=== PATIENT | male | born 1995 | race Caucasian/White ===

== ENCOUNTER 2017-05-05 09:43 | Emergency (ER) | payer OTHER ==
[~2017-05-05] VITALS: Ht 175.3 cm; Wt 90.7 kg
[2017-05-05 11:04] LABS: BASO # 0.1 K/mm3 (0.0-0.2); EOS # 0.2 K/mm3 (0.0-0.50); EOS % 3.7 % (0.0-3.0); LARGE UNSTAINED CELL # 0.2 K/mm3 (0.0-0.4); LARGE UNSTAINED CELL % 3.1 % (0.0-4.0); LYMPH # 1.8 K/mm3 (1.5-6.5); LYMPH % 25.8 % (24.0-44.0); MEAN CORPUSCULAR HEMOGLOBIN 30.2 pg (27.0-33.0); MEAN CORPUSCULAR HGB CONC 33.1 g/dl (32.0-36.5); MONO # 0.3 K/mm3 (0.0-0.8); MONO % 5.6 % (0.0-5.0); NEUTROPHILS # 3.7 K/mm3 (1.8-7.7); NEUTROPHILS % 60.8 % (36.0-66.0); PLATELET COUNT, AUTOMATED 299 k/mm3 (150-450)
[2017-05-05 11:06] LABS: INR 1.01
--- NOTE | 2017-05-05 11:12 | REP ---
CT Head without contrast HISTORY: Right facial weakness COMPARISON: None There is no intraparenchymal hemorrhage, acute infarct, mass or midline shift. The ventricular system is normal in appearance. There is no extra cerebral collection. There is no fracture. The visualized sinuses are clear. IMPRESSION: There is no intracranial lesion. Signed by Martin Griffin MD 05/05/2017 11:03 A
[2017-05-05 11:25] LABS: ANION GAP 5 MEQ/L (8-16); BLOOD UREA NITROGEN 19 MG/DL (7-18); CALCIUM LEVEL 8.7 MG/DL (8.5-10.1); CARBON DIOXIDE LEVEL 31 MEQ/L (21-32); CHLORIDE LEVEL 104 MEQ/L (98-107); CREATININE FOR GFR 0.98 MG/DL (0.70-1.30); ERYTHROCYTE SEDIMENTATION RATE 31 mm/hr (0-15); GLOMERULAR FILTRATION RATE > 60.0 (>60); GLUCOSE, FASTING 95 MG/DL (70-105); POTASSIUM SERUM 3.9 MEQ/L (3.5-5.1); SODIUM LEVEL 140 MEQ/L (136-145)
[2017-05-05] MEDS ORDERED: DOXY100C37 PO (13:29)
[2017-05-05] MEDS ORDERED: PRED20TA PO (13:29)
[2017-05-05] MEDS ORDERED: VALT1TAB PO (13:29)
[2017-05-05] MEDS ORDERED: valACYclovir HCL 500 MG TAB PO ONE (13:30)
[2017-05-05] MEDS ORDERED: predniSONE 20 MG TAB PO ONE (13:30)
[2017-05-05] MEDS ORDERED: DOXYCYCLINE HYCLATE 100 MG TAB PO ONE (13:30)
[2017-05-05 13:36] VITALS: BP 118/68
--- NOTE | 2017-05-05 13:51 | REP ---
MR BRAIN WITHOUT CONTRAST: HISTORY: Right facial weakness. COMPARISON: CT 05/05/2017 There are no areas of abnormal signal intensity in the brain. There is no intraparenchymal hemorrhage, infarct, mass, or midline shift. The ventricular system is normal in appearance. There is no extracerebral collection. The sinuses are clear. IMPRESSION: There is no intracranial lesion. Signed by Martin Griffin MD 05/05/2017 02:07 P
[2017-05-08 00:06] LABS: Lyme Disease IgG Ab 18 kDa Ban Present (.); Lyme Disease IgG Ab 23 kDa Ban Present (.); Lyme Disease IgG Ab 28 kDa Ban Absent (.); Lyme Disease IgG Ab 30 kDa Ban Absent (.); Lyme Disease IgG Ab 39 kDa Ban Present (.); Lyme Disease IgG Ab 41 kDa Ban Present (.); Lyme Disease IgG Ab 45 kDa Ban Present (.); Lyme Disease IgG Ab 58 kDa Ban Present (.); Lyme Disease IgG Ab 66 kDa Ban Present (.); Lyme Disease IgG Ab 93 kDa Ban Absent (.); Lyme Disease IgG West Blot Int Positive (.); Lyme Disease IgG/IgM Antibodie 3.08 ISR (0.00-0.90); Lyme Disease IgM Ab 23 kDa Ban Present (.); Lyme Disease IgM Ab 39 kDa Ban Absent (.); Lyme Disease IgM Ab 41 kDa Ban Present (.); Lyme Disease IgM Ab Quantitati 7.13 index (0.00-0.79); Lyme Disease IgM West Blot Int Positive (.)
== END 2017-05-05 13:42 | disposition home or self-care (01) ==
LOC: M ED 09:43
DX: G51.0 Bell's palsy (principal)